=== PATIENT | male | born 1975 | race Caucasian/White ===

== ENCOUNTER 2016-05-09 07:20 | Emergency (ER) | payer SELFPAY ==
--- NOTE | 2016-05-09 07:40 | EDPHY ---
H & P Stated Complaint: slipped on ice last night impacted r rib/back hurts to cough Time Seen by Provider: 05/09/16 07:33 HPI/ROS: CHIEF COMPLAINT: Rib pain HISTORY OF PRESENT ILLNESS: The patient is a 41-year-old man who comes to the emergency department complaining of right-sided anterior rib pain. He states that he slipped on the ice and had a curb yesterday in the back of his ribs. He has pain however in the from his ribs. He hopes that it would go away overnight but it is still there this morning. He has pain with deep inspiration and movement. No pain with palpation. No back pain, he did not hit his head. REVIEW OF SYSTEMS: Constitutional: denies: chills, fever, recent illness, recent injury EENTM: denies: blurred vision, double vision, nose congestion Respiratory: denies: cough, shortness of breath Cardiac: denies: chest pain, irregular heart rate, lightheadedness, palpitations Gastrointestinal/Abdominal: denies: abdominal pain, diarrhea, nausea, vomiting, blood streaked stools Genitourinary: denies: dysuria, frequency, hematuria, pain Musculoskeletal: See HPI Skin: denies: lesions, rash, jaundice, bruising Neurological: denies: headache, numbness, paresthesia, tingling, dizziness, weakness Hematologic/Lymphatic: denies: blood clots, easy bleeding, easy bruising Immunologic/allergic: denies: HIV/AIDS, transplant EXAM: GENERAL: Well-appearing, well-nourished and in no acute distress. HEAD: Atraumatic, normocephalic. EYES: Pupils equal round and reactive to light, extraocular movements intact, sclera anicteric, conjunctiva are normal. ENT: TMs normal, nares patent, oropharynx clear without exudates. Moist mucous membranes. NECK: Normal range of motion, supple without lymphadenopathy or JVD. LUNGS: Breath sounds clear to auscultation bilaterally and equal. No wheezes rales or rhonchi. HEART: Regular rate and rhythm without murmurs, rubs or gallops. ABDOMEN: Soft, nontender, normoactive bowel sounds. No guarding, no rebound. No masses appreciated. BACK: Small contusion/abrasion to right lower ribs posteriorly. No tenderness to palpation EXTREMITIES: Normal range of motion, no pitting or edema. No clubbing or cyanosis. NEUROLOGICAL: Cranial nerves II through XII grossly intact. Normal speech, normal gait. 5/5 strength, normal movement in all extremities, normal sensation PSYCH: Normal mood, normal affect. SKIN: Warm, dry, normal turgor, no visible rashes or lesions. Source: Patient Exam Limitations: No limitations - Personal History Current Tetanus/Diphtheria Vaccine: Yes - Medical/Surgical History Hx Asthma: No Hx Chronic Respiratory Disease: No Hx Diabetes: No Hx Cardiac Disease: No Hx Renal Disease: No Hx Cirrhosis: No Hx Alcoholism: Yes Hx HIV/AIDS: No Hx Splenectomy or Spleen Trauma: No Other PMH: ETOH, denies PSHx - Family History Significant Family History: No pertinent family hx - Social History Smoking Status: Current every day smoker Alcohol Use: Sober Drug Use: None Constitutional: Initial Vital Signs Temperature (C) 36.6 C 05/09/16 07:22 Heart Rate 72 05/09/16 07:22 Respiratory Rate 18 05/09/16 07:22 Blood Pressure 117/78 05/09/16 07:22 O2 Sat (%) 95 05/09/16 07:22 O2 Delivery Mode Room Air Allergies/Adverse Reactions: Penicillins Allergy (Severe, Verified 05/09/16 07:21) all cillins Allergy (Severe, Uncoded 12/12/11 19:25) Home Medications: Medication Instructions Recorded oxyCODONE/APAP 5/325 [Percocet 1 - 2 tab PO Q4H PRN #20 tab 05/09/16 5/325 (*)] Medical Decision Making - Diagnostics Imaging: X-ray: chest x-ray was obtained. I viewed the images myself on the PACS system. My interpretation of the images is: 3 anterior rib fractures, no pneumothorax. The radiologist interpretation is pending. ED Course/Re-evaluation: 8:15 a.m. the patient is feeling much better after Percocet. He is able to take deep breaths. We discussed his x-ray results reviewed the images. Treat him with pain medication and follow up with Trauma surgery. He is in no distress. He is agreeable to this plan. 8:44 a.m. Radiology over read reveals 6 fractures, The patient has already been discharged. I spoke with him over the phone. His pain is adequately controlled. He is breathing comfortably. He understands to follow up with Trauma surgery. He is well appearing and does not require admission at this point. Differential Diagnosis: Partial list of the Differential diagnosis considered include but were not limited to; rib fractures, pneumothorax, contusion and although unlikely based on the history and physical exam, I also considered pneumonia, PE, acute coronary disease. I discussed these differential diagnoses and the plan with the patient as well as the usual and expected course. The patient understands that the diagnosis is provisional and that in medicine we are not always correct and that further workup is often warranted. Usual and customary warnings were given. All of the patient's questions were answered. The patient was instructed to return to the emergency department should the symptoms at all worsen or return, otherwise to followup with the physician as we discussed. - Data Points Medications Given: Discontinued Medications Oxycodone/Acetaminophen (Percocet 5/325) 2 tab PO EDNOW ONE Stop: 05/09/16 07:49 Last Admin: 05/09/16 08:02 Dose: 2 tab Departure - Departure Disposition: Home, Routine, Self-Care Clinical Impression: Ribs, multiple fractures Qualifiers: Encounter type: initial encounter Fracture type: closed Laterality: right Qualifier Code: (S22.41XA) Multiple fractures of ribs, right side, initial encounter for closed fracture Condition: Fair Instructions: Rib Fracture (ED) Referrals: NONE *PRIMARY CARE P,. [Primary Care Provider] - As per Instructions Chuy Michelle MD [Medical Doctor] - As per Instructions Stand Alone Forms: Work Excuse Prescriptions: oxyCODONE/APAP 5/325 [Percocet 5/325 (*)] 1 - 2 tab PO Q4H PRN #20 tab PRN Reason: Pain, Severe
[2016-05-09] MEDS ORDERED: OXYCODONE/APAP 5/325 TAB PO ONE (07:48)
[2016-05-09 08:29] VITALS: BP 121/64; PULSE 75; RESP 16; TEMP 97.5; O2SAT 94
--- NOTE | 2016-05-09 08:30 | DX ---
Chest and Right Ribs (4 views ) History: Pain post trauma, fall last night Findings: PA chest - No evidence of pneumothorax, pleural effusion or pulmonary contusion. The medias tinum is not widened. Right ribs, 3 views-there are fractures of right ribs 4 through 9. The sixth, seventh and eighth rib fractures are slightly displaced. Impression: 6 right rib fractures.
== END 2016-05-09 08:30 | disposition home or self-care (01) ==
DX: S22.41XA Multiple fractures of ribs, right side, initial encounter for closed fracture (principal); F17.200 Nicotine dependence, unspecified, uncomplicated; W00.0XXA Fall on same level due to ice and snow, initial encounter